=== PATIENT | female | born 1935 | race Caucasian/White ===

== ENCOUNTER 2023-01-04 17:36 | Emergency (ER) | payer OTHER ==
[~2023-01-04] VITALS: Ht 157.5 cm; Wt 59.0 kg
[~2023-01-04 17:36] MED LIST: DIPH60LI PO; MOEX15TA2 PO; SULF1TAB48 PO
[2023-01-04 17:55] VITALS: BP_SYST 155
--- NOTE | 2023-01-04 20:36 | NUR ---
Patient placed in ER BED 7 for evaluation. Bed in lowest position with siderails up. Report given to KRYSTIAN ELIZABETH for continuity of care. Instructed to notify ED staff for any changes in condition or worsening of symptoms. Patient verbalized understanding.
--- NOTE | 2023-01-04 20:37 | NUR ---
Dr. SALAZAR at bedside examining the patient.
--- NOTE | 2023-01-04 20:47 | NUR ---
Patient given written and verbal discharge instructions and verbalizes understanding. ER Dr Umanzor discussed with patient the results and treatment provided. Patient in stable condition. ID arm band removed. No Rx given. Patient educated on pain management and to follow up with PMD. Pain Scale 2/10. Opportunity for questions provided and answered. Medication side effect fact sheet provided.
[2023-01-04 20:48] VITALS: BP_SYST 150
== END 2023-01-04 20:48 | disposition home or self-care (01) ==
LOC: SED 17:36
DX: S00.532A Contusion of oral cavity, initial encounter (principal); I10 Essential (primary) hypertension; Z79.899 Other long term (current) drug therapy; X83.8XXA Intentional self-harm by other specified means, initial encounter; Y93.89 Activity, other specified; Y92.89 Other specified places as the place of occurrence of the external cause; Y99.8 Other external cause status
CPT/HCPCS: 99281